=== PATIENT | female | born 1990 | race Caucasian/White ===

== ENCOUNTER 2021-09-19 00:08 | Emergency (ER) | payer OTHER ==
[~2021-09-19] VITALS: Ht 162.6 cm; Wt 65.8 kg
[2021-09-19] MEDS ORDERED: AZIT250 PO (02:10)
== END 2021-09-19 02:14 | disposition home or self-care (01) ==
LOC: ER 00:08
DX: H61.23 Impacted cerumen, bilateral (principal)
CPT/HCPCS: 99282

== ENCOUNTER 2022-12-07 22:18 | Emergency (ER) | payer OTHER ==
[~2022-12-07] VITALS: Ht 162.6 cm; Wt 68.0 kg
[~2022-12-07 22:18] MED LIST: AZIT250 PO
[2022-12-07 22:26] VITALS: BP 121/83
[2022-12-07] MEDS ORDERED: Vibramycin100 MG PO (22:45)
== END 2022-12-07 23:03 | disposition home or self-care (01) ==
LOC: ER 22:18
DX: A64 Unspecified sexually transmitted disease (principal)
CPT/HCPCS: 96372; 99283-25; A9270; J0696

== ENCOUNTER 2023-01-19 21:43 | Emergency (ER) | payer OTHER ==
[~2023-01-19] VITALS: Ht 157.5 cm; Wt 72.6 kg
[~2023-01-19 21:43] MED LIST changes: +Vibramycin100 MG PO
[2023-01-19 21:55] VITALS: BP 123/84
[2023-01-19 22:14] LABS: Source, Urine Clean Catch
[2023-01-19 22:23] LABS: Bilirubin, Urine Neg (Neg); Blood, Urine Neg (Neg); Glucose Qualitative, Urine Neg (Neg); Ketones, Urine Neg (Neg); Leukocyte Esterase, Urine 1+ (Neg); Nitrite, Urine Neg (Neg); Protein, Urine 1+ (Neg); Specific Gravity, Urine 1.025 (1.003-1.022); Urobilinogen, Urine NORM (Normal)
[2023-01-19 22:46] LABS: Appearance, Urine Hazy (Clear); Color, Urine Yellow (P-Yellow)
[2023-01-19 22:49] LABS: Bacteria Mod /hpf; Mucus Mod (0-Heavy); Red Blood Cells, Urine 0-2 /hpf (0-2); Squamous Epithelial Cells Many /hpf (Few)
[2023-01-19 22:50] LABS: Amorphous Light (0-Heavy)
== END 2023-01-19 23:26 | disposition left against medical advice (07) ==
LOC: ER 21:43
PROVIDERS: Student in an Organized Health Care Education/Training Program
DX: N89.8 Other specified noninflammatory disorders of vagina (principal); Z53.21 Procedure and treatment not carried out due to patient leaving prior to being seen by health care provider
CPT/HCPCS: 81001; 81025; 87086